=== PATIENT | male | born 1980 | race Caucasian/White ===

== ENCOUNTER 2017-07-28 20:11 | Emergency (ER) | payer BC ==
[2017-07-28 20:20] VITALS: BP 138/92
--- NOTE | 2017-07-28 21:03 | EDM.PDOC ---
ED HPI GENERAL MEDICAL PROBLEM - General Chief Complaint: General Stated Complaint: PAIN/SWELLING LT CHEEK/TROUBLE HEARING/FEVER Time Seen by Provider: 07/28/17 20:14 Source of Information: Reports: Patient History Limitations: Reports: No Limitations - History of Present Illness INITIAL COMMENTS - FREE TEXT/NARRATIVE: HISTORY AND PHYSICAL: []37-year-old male presents with facial swelling on the left lower jaw He has been coughing/ having sinus pressure History of Present Illness: []Patient has been sick for 3 days Review of Systems: As per history of present illness and below otherwise all systems reviewed and negative. Past medical history: As per history of present illness and as reviewed below otherwise noncontributory. Surgical history: As per history of present illness and as reviewed below otherwise noncontributory. Social history: No reported history of drug or alcohol abuse. Family history: As per history of present illness and as reviewed below otherwise noncontributory. Physical exam: HEENT: Atraumatic, normocehpalic, pupils reactive, negative for conjunctival pallor or scleral icterus, mucous membranes moist, throat with erythema neck supple, nontender, trachea midline. Left lower jawline is edematous tender upon palpation gumline is swollen tympanic membranes bilaterally are non- erythematous but have a dull light reflex. Valsalva maneuver causes crackling to his ears. Poor light reflex to his sinuses. Mild nasal pharyngeal streaking to posterior throat. Lungs: Coarse to auscultation with crackles to the right base and wheezing to the left base, breath sounds equal bilaterally, chest non tender. Heart: S1S2, regular, negative for clicks, rubs, or JVD. Abdomen: Soft, nondistended, nontender. Negative for masses or hepatossplenmegaly. Negative for costovertebral tenderness. Pelvis: Stable nontender. Genitourinary: Deferred. Rectal: Deferred Extremities: Atraumatic, negative for cords or calf pain. Neurovascular unremarkable. Neuro: Awake, alert, oriented. Cranial nerves II through XII unremarkable. Cerebellum unremarkable. Motor and sensory unremarkable throughout. Exam nonfocal. Diagnostics: [Chest x-ray] Therapeutics: [] Impression: [#1 acute sinusitis #2 dental abscess #3 eustation tube dysfunction] Plan: []Discharged home Follow up with primary care provider Wednesday or Wednesday of next week Call for an appointment and state you were in the emergency room and needs to follow-up [facility] [address] [place] [id number] Definitive disposition and diagnosis as appropriate pending reevaluation and review of above. kidney Pain Score (Numeric/FACES): 5 - Related Data Allergies Allergy/AdvReac Type Severity Reaction Status Date / Time No Known Allergies Allergy Verified 07/28/17 20:16 Home Meds: Home Meds . [No Known Home Meds] 07/28/17 [History] Past Medical History - Past Health History Medical/Surgical History: Denies Medical/Surgical History HEENT History: Reports: None Cardiovascular History: Reports: None Respiratory History: Reports: None Gastrointestinal History: Reports: None Genitourinary History: Reports: None Musculoskeletal History: Reports: None Neurological History: Reports: None Psychiatric History: Reports: None Endocrine/Metabolic History: Reports: None Hematologic History: Reports: None Dermatologic History: Reports: None - Infectious Disease History Infectious Disease History: Reports: None Social & Family History - Family History Family Medical History: Noncontributory - Tobacco Use Smoking Status *Q: Current Every Day Smoker Years of Tobacco use: 17 Packs/Tins Daily: 1 - Recreational Drug Use Recreational Drug Use: No ED ROS GENERAL - Review of Systems Review Of Systems: ROS reveals no pertinent complaints other than HPI. ED EXAM, GENERAL - Physical Exam Exam: See Below (See dictation) Course - Vital Signs Last Recorded V/S: Last Vital Signs Temp 37.3 C 07/28/17 20:16 Pulse 102 H 07/28/17 20:16 Resp 18 07/28/17 20:16 BP 138/92 H 07/28/17 20:16 Pulse Ox 98 07/28/17 20:16 - Orders/Labs/Meds Orders: Active Orders 24 hr Category Date Time Status Chest 2V [CR] Stat Exams 07/28/17 20:33 Taken CULTURE STREP A CONFIRMATION [RM] Stat Lab 07/28/17 20:39 Results STREP SCRN A RAPID W CULT CONF [RM] Stat Lab 07/28/17 20:39 Results cefTRIAXone [Rocephin] 1,000 mg Med 07/28/17 21:38 Ordered Lidocaine 1% [Xylocaine-MPF 1%] 4 ml IM ONETIME Labs: Laboratory Tests 07/28/17 07/28/17 Range/Units 20:39 20:39 WBC 17.99 H (4.0-11.0) K/uL RBC 5.25 (4.50-5.90) M/uL Hgb 16.1 (13.0-17.0) g/dL Hct 46.7 (38.0-50.0) % MCV 89.0 (80.0-98.0) fL MCH 30.7 (27.0-32.0) pg MCHC 34.5 (31.0-37.0) g/dL RDW Std Deviation 43.6 (28.0-62.0) fl RDW Coeff of Carol 13 (11.0-15.0) % Plt Count 254 (150-400) K/uL MPV 9.40 (7.40-12.00) fL Add Manual Diff YES Neutrophils % (Manual) 85 H (48.0-80.0) % Lymphocytes % (Manual) 15 L (16.0-40.0) % Nucleated RBC % 0.0 /100WBC Absolute Seg Neuts 15.3 Lymphocytes # (Manual) 2.7 Nucleated RBCs # 0 K/uL Sodium 135 L (136-146) mmol/L Potassium 4.0 (3.5-5.1) mmol/L Chloride 101 (98-110) mmol/L Carbon Dioxide 24 (21-31) mmol/L BUN 9 (6.0-23.0) mg/dL Creatinine 0.9 (0.6-1.5) mg/dL Est Cr Clr Drug Dosing 122.01 mL/min Estimated GFR (MDRD) > 60.0 ml/min Glucose 105 (60-110) mg/dL Calcium 9.9 (8.8-10.8) mg/dL Total Bilirubin 2.0 H (0.1-1.5) mg/dL AST 19 (5-40) IU/L ALT 19 (8-54) IU/L Alkaline Phosphatase 98 (40-150) Total Protein 7.6 (6.0-8.0) g/dL Albumin 4.4 (3.5-5.0) g/dL Globulin 3.2 (2.0-3.5) g/dL Albumin/Globulin Ratio 1.4 (1.3-2.8) Departure - Departure Time of Disposition: 21:41 Disposition: Home, Self-Care 01 Condition: Good Clinical Impression: Dental abscess Acute sinusitis Qualifiers: Sinusitis location: pansinusitis Recurrence: non-recurrent Qualified Code(s): J01.40 - Acute pansinusitis, unspecified - Discharge Information Referrals: PCP,None [Primary Care Provider] - Forms: ED Department Discharge Additional Instructions: The following information is given to patients seen in the emergency department who are being discharged to home. This information is to outline your options for follow-up care. We provide all patients seen in our emergency department with a follow-up referral. The need for follow-up, as well as the timing and circumstances, are variable depending upon the specifics of your emergency department visit. If you don't have a primary care physician on staff, we will provide you with a referral. We always advise you to contact your personal physician following an emergency department visit to inform them of the circumstance of the visit and for follow-up with them and/or the need for any referrals to a consulting specialist. The emergency department will also refer you to a specialist when appropriate. This referral assures that you have the opportunity for followup care with a specialist. All of these measure are taken in an effort to provide you with optimal care, which includes your followup. Under all circumstances we always encourage you to contact your private physician who remains a resource for coordinating your care. When calling for followup care, please make the office aware that this follow-up is from your recent emergency room visit. If for any reason you are refused follow-up, please contact the [facility] emergency department at and asked to speak to the emergency department charge nurse. He was given Rocephin IM in the emergency department Prescription has been written for Bactrim DS 1 twice a day 10 days - My Orders Last 24 Hours: My Active Orders 07/28/17 20:33 Chest 2V [CR] Stat 07/28/17 20:39 CULTURE STREP A CONFIRMATION [RM] Stat STREP SCRN A RAPID W CULT CONF [RM] Stat 07/28/17 21:38 cefTRIAXone [Rocephin] 1,000 mg Lidocaine 1% [Xylocaine-MPF 1%] 4 ml IM ONETIME - Assessment/Plan Last 24 Hours: My Active Orders 07/28/17 20:33 Chest 2V [CR] Stat 07/28/17 20:39 CULTURE STREP A CONFIRMATION [] Stat STREP SCRN A RAPID W CULT CONF [] Stat 07/28/17 21:38 cefTRIAXone [Rocephin] 1,000 mg Lidocaine 1% [Xylocaine-MPF 1%] 4 ml IM ONETIME
[2017-07-28 21:07] LABS: CHLORIDE,CL 101 mmol/L (98-110); SODIUM,NA 135 mmol/L (136-146)
[2017-07-28] MEDS ORDERED: cefTRIAXone 1,000 MG in Lidocaine 1% 4 ML IM ONE (21:38)
--- NOTE | 2017-07-29 13:19 | CR ---
EXAM DATE: 07/28/17 PATIENT'S AGE: 37 Patient: AMBROSIO JOHNS Facility: [place], [place] Site . Site : [id number] Study: XRay Chest [id number]/20/2017 9:00:13 PM Ordering Physician: Doctor Goodman Final Report: INDICATION: Pain. Shortness of breath. TECHNIQUE: Chest 2 views. COMPARISON: None available FINDINGS: Cardiovascular and mediastinum: Heart size and vasculature are normal in caliber and appearance. Mediastinum is within normal limits. Lungs and pleural spaces: Lungs are clear. No sign of infiltrate or mass. No sign of pleural effusion. No pneumothorax. Bones and soft tissues: No significant findings. IMPRESSION: No sign of acute disease. Dictated by Ari Freitas MD @ 07/28/2017 9:08:44 PM Dictated by: Ari Freitas MD @ 07/28/2017 21:09:44 (Electronic Signature) Report Signed by Proxy. NORMA
== END 2017-07-28 22:00 | disposition home or self-care (01) ==
LOC: MW.ED 20:11
DX: K04.7 Periapical abscess without sinus (principal); J01.40 Acute pansinusitis, unspecified; H69.80 Other specified disorders of Eustachian tube, unspecified ear; F17.210 Nicotine dependence, cigarettes, uncomplicated
CPT/HCPCS: 36415; 71020; 80053; 85025; 87081; 87880; 96372; 99283; J0696